=== PATIENT | female | born 1985 | race American Indian/Alaskan Native ===

== ENCOUNTER 2021-08-06 11:37 | Outpatient (CLI) | payer OTHER ==
--- NOTE | 2021-08-06 14:10 | XRay Report ---
CHEST 2 VIEWS INDICATION / CLINICAL INFORMATION: J45.20 MILD INTERMITTENT ASTHMA. COMPARISON: None available. FINDINGS: SUPPORT DEVICES: None. HEART / MEDIASTINUM: The heart size and pulmonary vasculature are normal. LUNGS / PLEURA: No significant pulmonary or pleural abnormality. No pneumothorax. ADDITIONAL FINDINGS: No significant additional findings. IMPRESSION: No acute findings. Signer Name: Jay Loaiza MD Signed: 08/06/2021 2:05 PM Workstation Name: [email or web address]
--- NOTE | 2021-08-08 09:02 | Mammography Report ---
DIGITAL SCREENING MAMMOGRAM WITH CAD, 08/06/2021 CLINICAL INFORMATION / INDICATION: Routine screening mammography. TECHNIQUE: Digital bilateral 2D mammography was obtained in the craniocaudal and mediolateral obliqu e projections. This examination was interpreted with the benefit of Computer-Aided Detection analysis . COMPARISON: None. This is the patient's first mammogram. FINDINGS: Breast Density: The breasts are heterogeneously dense, which may obscure small masses. No dominant mass, suspicious calcifications, or architectural distortion in either breast. IMPRESSION: No mammographic evidence of malignancy. Because of the patient's family history of breast cancer, she may wish to begin routine annual screening mammography now. Follow up recommendation: Routine yearly BI-RADS Category 1: NEGATIVE A "normal" or negative report should not discourage follow up or biopsy of a clinically significant f inding. A written summary of these findings will be mailed to the patient. The patient will be entered into a mammography reporting system which will generate a reminder letter for the patient's next appointmen t at the appropriate interval. [employer] recommends yearly mammograms starting at age 40 and continuing as l dorothy as a woman is in good health. Breast MRI is recommended for women with an approximate 20-25% or greater lifetime risk of breast cancer, including women with a strong family history of breast or ova tony cancer or who have been treated for Hodgkin's disease. Signer Name: Kalyn Naik MD Signed: 08/08/2021 8:58 AM Workstation Name: [id number]
== END 2021-08-06 11:38 | disposition home or self-care (01) ==
LOC: XRAY 11:37 → MAMMO 11:37 → XRAY 11:38
PROVIDERS: ATTEND Internal Medicine
DX: Z12.31 Encounter for screening mammogram for malignant neoplasm of breast (principal); J45.20 Mild intermittent asthma, uncomplicated
CPT/HCPCS: 71046; 77067